=== PATIENT | male | born 1935 ===

== ENCOUNTER 2018-03-29 01:16 | Emergency (ER) | payer MEDICARE ==
[2018-03-29 01:16] VITALS: BMI 28.8
[2018-03-29 01:33] VITALS: O2SAT 95
--- NOTE | 2018-03-29 01:35 | C.PDOC ---
History Of Present Illness Patient presents to the ER with acute urinary retention, last voided at around 1700. Patient has an appointment for surgical procedure for enlarged prostate. Denies fever, chills, nausea, or vomiting. Time Seen by Provider: 03/29/18 01:35 Chief Complaint (Nursing): Male Genitourinary History Per: Patient History/Exam Limitations: no limitations Onset/Duration Of Symptoms: Hrs Current Symptoms Are (Timing): Still Present Severity: Mild Pain Scale Rating Of: 3 Quality Of Discomfort: Unable To Describe Associated Symptoms: Urinary Symptoms (retention). denies: Fever, Chills, Nausea, Vomiting Alleviating Factors: None Recent travel outside of the [place]: No Past Medical History Reviewed: Historical Data, Nursing Documentation, Vital Signs Vital Signs: Last Vital Signs Temp 97.9 F 03/29/18 01:27 Pulse 69 03/29/18 01:27 Resp 14 03/29/18 01:27 BP 135/81 03/29/18 01:27 Pulse Ox 95 03/29/18 01:27 - Medical History PMH: Denies: Chronic Kidney Disease - [facility] Procedures CIRCUMCISION (08/26/13) DIPHTHERIA TOXOID ADMIN (09/21/13) TETANUS TOXOID ADMINIST (09/21/13) Family History: States: No Known Family Hx - Social History Hx Alcohol Use: No Hx Substance Use: No - Immunization History Hx Tetanus Toxoid Vaccination: Yes Hx Influenza Vaccination: Yes Hx Pneumococcal Vaccination: Yes Review Of Systems Constitutional: Negative for: Fever, Chills Gastrointestinal: Negative for: Nausea, Vomiting Genitourinary: Positive for: Other (Urinary retention) Physical Exam - Physical Exam Appears: Non-toxic Skin: Warm, Dry Head: Normacephalic Oral Mucosa: Moist Chest: Symmetrical, No Tenderness Cardiovascular: Rhythm Regular Respiratory: No Rales, No Rhonchi, No Wheezing Gastrointestinal/Abdominal: Soft, No Tenderness Neurological/Psych: Oriented x3 ED Course And Treatment O2 Sat by Pulse Oximetry: 95 (Room air) Pulse Ox Interpretation: Normal Progress Note: Placed 14 pashto watson without difficulty, 600cc clear urine drained with instant relief. 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 Disposition Counseled Patient/Family Regarding: Studies Performed, Diagnosis, Need For Followup - Disposition Disposition: HOME/ ROUTINE Disposition Time: 01:35 Condition: FAIR Additional Instructions: Please follow up with your urologist Instructions: How to Care for Your Watson Catheter, Male, Urinary Retention (DC) Forms: [facility] (Turkmen) Print Language: ICELANDIC - Clinical Impression Clinical Impression: Acute urinary retention - Scribe Statement The provider has reviewed the documentation as recorded by the Scribe Jaylon Poe All medical record entries made by the Scribe were at my direction and personally dictated by me. I have reviewed the chart and agree that the record accurately reflects my personal performance of the history, physical exam, medical decision making, and the department course for this patient. I have also personally directed, reviewed, and agree with the discharge instructions and disposition.
[2018-03-29 02:57] VITALS: BP 131/78; PULSE 81; RESP 18; TEMP 98.3
== END 2018-03-29 02:45 | disposition home or self-care (01) ==
LOC: C.ER 01:16
DX: R33.8 Other retention of urine (principal)

== ENCOUNTER 2018-04-06 10:02 | Inpatient (IN) | payer MEDICARE ==
[2018-04-06 10:03] VITALS: BMI 28.8
--- NOTE | 2018-04-06 10:52 | C.PDOC ---
History Of Present Illness 82 year old male presents to the ED complaining of testicular and penile pain. Reports he had laser surgery for his prostate on 02/03/18 and since then he has been having the pain. Patient was seen in the ED on 03/29/18 for urinary r etention, urinary catheter was placed and patient was instructed to follow up with Urologist. Patient followed up with Dr. Arauz on 04/03/18 and was given prescriptions but reports he was unable to pick it up. Time Seen by Provider: 04/06/18 10:30 Chief Complaint (Nursing): Male Genitourinary History Per: Patient, Family History/Exam Limitations: no limitations Onset/Duration Of Symptoms: Days Current Symptoms Are (Timing): Still Present Quality Of Discomfort: "Pain" Associated Symptoms: denies: Fever, Chills, Nausea, Vomiting, Diarrhea, Back Pain, Chest Pain Past Medical History Reviewed: Historical Data, Nursing Documentation, Vital Signs Vital Signs: Last Vital Signs Temp 97.6 F 04/06/18 10:20 Pulse 112 H 04/06/18 10:20 Resp 20 04/06/18 10:20 BP 147/85 04/06/18 10:20 Pulse Ox 98 04/06/18 10:20 - Medical History PMH: Denies: Chronic Kidney Disease Other PMH: Prostate problems Other Surgeries: hx of surgeries - [facility] Procedures CIRCUMCISION (08/26/13) DIPHTHERIA TOXOID ADMIN (09/21/13) TETANUS TOXOID ADMINIST (09/21/13) Family History: States: No Known Family Hx - Social History Hx Alcohol Use: No Hx Substance Use: No - Immunization History Hx Tetanus Toxoid Vaccination: Yes Hx Influenza Vaccination: Yes Hx Pneumococcal Vaccination: Yes Review Of Systems Except As Marked, All Systems Reviewed And Found Negative. Constitutional: Negative for: Fever, Chills Gastrointestinal: Negative for: Nausea, Vomiting, Abdominal Pain, Diarrhea Genitourinary: Positive for: Scrotal Pain, Penile Pain Physical Exam - Physical Exam Appears: Non-toxic, No Acute Distress Skin: Warm, Dry, No Rash Head: Atraumatic, Normacephalic Eye(s): bilateral: Normal Inspection Ear(s): Bilateral: Normal Nose: Normal Oral Mucosa: Moist Tongue: Normal Appearing Neck: Supple Lymphatic: Normal Exam Chest: Symmetrical Cardiovascular: Rhythm Regular Respiratory: No Rales, No Rhonchi, No Wheezing Gastrointestinal/Abdominal: Soft, Tenderness (suprapubic), No Distention, No Guarding Back: Normal Inspection Male Genital: Testicular Tenderness, No Testicular Swelling, Circumcised, Other (watson in place) Extremity: Normal ROM, No Tenderness, No Pedal Edema Neurological/Psych: Oriented x3, Normal Speech, Normal Motor, Normal Sensation ED Course And Treatment - Laboratory Results Result Diagrams: 04/06/18 11:00 04/06/18 11:00 Lab Interpretation: Abnormal (leucocytosis) ECG: Interpreted By Ri ECG Rhythm: Sinus Rhythm, R BBB ECG Interpretation: Abnormal (L axis deviation, incomplete RBBB) O2 Sat by Pulse Oximetry: 98 (RA) Pulse Ox Interpretation: Normal - CT Scan/US US testicular Other Rad Studies (CT/US): Read By Radiologist, Radiology Report Reviewed CT/US Interpretation: Accession No. : [id number]. Patient Name / ID : CLAUDIA Garcia / [id number]. Exam Date : 04/06/2018 11:42:57 ( Approved ). Study Comment : Sex / Age : M / 82Y. Creator : Jose Manuel Beckett MD. Dictator : Jose Manuel Beckett MD. Electrophysiologist : Alemite Operator : Jose Manuel Beckett MD. Approver2 : Report Date : 04/06/2018 13:22:37. My Comment : . Testicular ultrasound. HISTORY: Testicular pain. COMPARISON: None available. Technique: Real-time sonography was performed through the scrotum. Findings: Right testes: 3.7 x 2.3 x 2.6 centimeters. Homogeneous echotexture. Normal flow. Small right scrotal hydrocele. Punctate scattered testicular calcifications. Right epididymis: 0.7 x 1.1 x 1.2 centimeters. Normal flow. Left testes: 4.4 x 1.9 x 2.6 centimeters. Normal flow. Homogeneous echotexture. Punctate scattered testicular calcifications. Small left scrotal hydrocele. Prominent left epid idymis measuring 1.6 x 1.4 x 1.9 centimeters with associated increased flow. Complex septated left epididymal cyst measuring 7 x 7 x 8 millimeters. Impression: Prominent left epididymis measuring up to 1.9 centimeters with associated increased flow which may represent underlying epididymitis. Clinical correlation. Additional complex septated left epididymal cyst measuring up to 8 millimeters. Small bilateral scrotal hydroceles. 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 Clinical correlation. CT abd/pel Other Rad Studies (CT/US): Read By Radiologist, Radiology Report Reviewed CT/US Interpretation: Accession No. : [id number]. Patient Name / ID : CLAUDIA Garcia / [id number]. Exam Date : 04/06/2018 15:12:50 ( Addendum_Approved ). Study Comment : Sex / Age : M / 82Y. Creator : Segundo Mccollum MD. Dictator : Segundo Mccollum MD. Electrophysiologist : Alemite Operator : Segundo Mccollum MD. Approver2 : Report Date : 04/06/2018 16:06:55. My Comment : . ADDENDUM: Watson catheter needs to be pulled out completely. No evidence of prostate abscess. [ Addendum Report Added by Segundo Mccollum MD at 04/06/2018 16:10:31 ]. Date of service: 04/06/2018. PROCEDURE: CT Abdomen and Pelvis with contrast. HISTORY: R/O PROSTATE ABSESS. COMPARISON: None. TECHNIQUE: Contrast dose: Radiation dose: Total exam DLP = 733.05 mGy-cm. This CT exam was performed using one or more of the following dose reduction techniques: Automated exposure control, adjustment of the mA and/or kV according to patient size, and/or use of iterative reconstruction technique. FINDINGS: LOWER THORAX: Unremarkable. LIVER: Unremarkable. No gross lesion or ductal dilatation. GALLBLADDER AND BILE DUCTS: Unremarkable. PANCREAS: Unremarkable. No gross lesion or ductal dilatation. SPLEEN: Unremarkable. ADRENALS: Unremarkable. No mass. KIDNEYS AND URETERS: 22 millimeter lower pole cyst. 2 millimeter probable in the left lower pole. VASCULATURE: Unremarkable. No aortic aneurysm. No aortic atherosclerotic calcification or mural plaque present. BOWEL: Unremarkable. No obstruction. No gross mural thickening. APPENDIX: Normal appendix. PERITONEUM: Unremarkable. No free fluid. No free air. LYMPH NODES: Unremarkable. No enlarged lymph nodes. BLADDER: Unremarkable. REPRODUCTIVE: Enlarged prostate gland. Watson catheter tip in the prostatic urethra. Balloon distended in the corpora spongiosum. Recommend pull back. BONES: No suspicious lesions. OTHER FINDINGS: None. IMPRESSION: Enlarged prostate gland. Watson catheter tip in the prostatic ure thra. Balloon distended in the corpora spongiosum. Recommend pull back. Medical Decision Making Medical Decision Making: Plan - Bloodwork - Morphine 1mg IVP - US testicular at 12 pmd Case discussed with Dr. Avila, pt's Urologist, he recommended abd/pelvis CT scan r/o prostate abscess, rocephine 1 g q 24 hrs, pyridium and nsaids. Pt to be placed in observation to hospitalist and Dr. Avila will see pt tomorrow AM. Case discussed with Dr. Mcfadden who accepted the pt. Disposition Counseled Patient/Family Regarding: Studies Performed, Diagnosis - Disposition Disposition: HOME/ ROUTINE Disposition Time: 14:18 Condition: STABLE - Clinical Impression Clinical Impression: BPH (benign prostatic hyperplasia), Epididymitis, Abdominal pain - PA / BOW MACHINE OPERATOR / Resident Statement MD/DO has reviewed & agrees with the documentation as recorded. - Scribe Statement The provider has reviewed the documentation as recorded by the Scribe Shakira Ardon All medical record entries made by the Cleveibradha were at my direction and personally dictated by me. I have reviewed the chart and agree that the record accurately reflects my personal performance of the history, physical exam, medical decision making, and the department course for this patient. I have also personally directed, reviewed, and agree with the discharge instructions and di sposition.
[2018-04-06 11:05] LABS: BASO % 0.3 % (0.0-2.0); EOS # 0.1 K/uL (0.0-0.7); EOS % 0.8 % (0.0-4.0); HEMOGLOBIN 14.8 g/dL (12.0-18.0); LYMPH # 0.9 K/uL (1.0-4.3); LYMPH % 6.5 % (20.0-40.0); MEAN CELL VOLUME 85.9 fL (80.0-94.0); MEAN CORPUSCULAR HEMOGLOBIN 29.8 pg (27.0-31.0); MEAN CORPUSCULAR HGB CONC 34.7 g/dL (33.0-37.0); MEAN PLATELET VOLUME 7.2 fL (7.2-11.7); MONO # 0.9 K/uL (0.0-0.8); MONO % 6.8 % (0.0-10.0); NEUT # 11.8 K/uL (1.8-7.0); NEUT % 85.6 % (50.0-75.0); PLATELET COUNT 208 K/uL (130-400); RBC 4.99 Mil/uL (4.40-5.90); RED CELL DISTRIBUTION WIDTH 13.5 % (11.5-14.5); WHITE BLOOD COUNT 13.8 K/uL (4.8-10.8)
[2018-04-06 11:18] LABS: ALB/GLOB RATIO 1.1 (1.0-2.1); ALBUMIN 3.9 g/dL (3.5-5.0); ALT/SGPT 21 U/L (21-72); AST/SGOT 22 U/L (17-59); BLOOD UREA NITROGEN 22 mg/dL (9-20); CALCIUM 9.3 mg/dl (8.6-10.4); GFR NON-AFRICAN AMERICAN > 60
[2018-04-06 11:24] LABS: SQUAMOUS EPITHIAL 1 /hpf (0-5); URINE BACTERIA RARE (<OCC); URINE BILIRUBIN NEGATIVE (NEGATIVE); URINE CLARITY Hazy (Clear); URINE COLOR Amber (YELLOW); URINE GLUCOSE (UA) NORMAL (Normal); URINE LEUKOCYTE ESTERASE 3+ Leu/uL (Negative); URINE PROTEIN 3+ mg/dL (NEGATIVE); URINE UROBILINOGEN NORMAL mg/dL (0.2-1.0)
[2018-04-06 11:36] LABS: URINE BLOOD 3+ (NEGATIVE)
[2018-04-06] MEDS ORDERED: Sodium Chloride 0.9% 1,000 ML IV ONE (12:01)
[2018-04-06] MEDS ORDERED: Iohexol 240 (50 ml) PO ONE (12:01)
[2018-04-06] MEDS ORDERED: Naproxen 275 mg Tab PO STA (12:06)
[2018-04-06] MEDS ORDERED: cefTRIAXone IV 1 gm in Dextros 50 ML IV ONE (12:08)
[2018-04-06 12:19] LABS: BANDS 2 % (0-2); EOSINOPHIL 2 % (0-4); LYMPHOCYTE 7 % (20-40); MONOCYTE 6 % (0-10); NEUTROPHIL 82 % (50-75); REACTIVE LYMPHOCYTES 1 % (0-0); TOTAL CELLS COUNTED 100
[2018-04-06 12:20] LABS: PLATELET ESTIMATE NORMAL (NORMAL)
[2018-04-06] MEDS ORDERED: Sodium Chloride 0.9% 1,000 ML ONE (12:31)
[2018-04-06] MEDS ORDERED: Naproxen 275 mg Tab PO ONE (12:31)
[2018-04-06] MEDS ORDERED: cefTRIAXone 1 gm 1 GM/100 ML BAG IVPB ONE (12:31)
[2018-04-06] MEDS ORDERED: Iohexol 240 (50 ml) ONE (12:46)
--- NOTE | 2018-04-06 13:26 | US ---
Testicular ultrasound HISTORY: Testicular pain. COMPARISON: None available. Technique: Real-time sonography was performed through the scrotum. Findings: Right testes: 3.7 x 2.3 x 2.6 centimeters. Homogeneous echotexture. Normal flow. Small right scrotal hydrocele. Punctate scattered testicular calcifications. Right epididymis: 0.7 x 1.1 x 1.2 centimeters. Normal flow. Left testes: 4.4 x 1.9 x 2.6 centimeters. Normal flow. Homogeneous echotexture. Punctate scattered testicular calcifications. Small left scrotal hydrocele. Prominent left epididymis measuring 1.6 x 1.4 x 1.9 centimeters with associated increased flow. Complex septated left epididymal cyst measuring 7 x 7 x 8 millimeters. Impression: Prominent left epididymis measuring up to 1.9 centimeters with associated increased flow which may represent underlying epididymitis. Clinical correlation. Additional complex septated left epididymal cyst measuring up to 8 millimeters. Small bilateral scrotal hydroceles. 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 Clinical correlation.
--- NOTE | 2018-04-06 14:23 | CP.PCM.HP ---
<JoshNiru EricksonMarlon - Last Filed: 04/06/18 17:28> History of Present Illness - History of Present Illness History of Present Illness: HPI: 82 year old male with past medical history of severe BPH presents to the ER for dysuria and hematuria. Patient states he has been having dysuria since Saturday. At that time he was seen by his urologist Dr. Avila in the office and patient states his watson was changed and he was told to start a medication but he did not get a chance to fill the prescription. Patient states the pain became unbearable overnight and he was not able to sleep. The pain is what prompted him to come to the ER. Patient denies chest pain, shortness of breath, palpitations, nausea, vomiting, fever, chills, diarrhea, constipation, increase or decrease in weight. PMD: Dr. Rockwell Urologist: Dr. Avila Past Medical History: BPH Surgical History: s/p GreenLight Laser of the prostate 02/03/18 Medications: denies Allergies: denies Social History: Quit smoking 35 years ago (previously smoked 12 years 1ppd); quit drinking alcohol 35 years ago; retired - Tailor; lives with Present on Admission - Present on Admission Any Indicators Present on Admission: No Review of Systems - Constitutional Constitutional: absent: Chills, Fever, Weight Gain, Weight Loss - Cardiovascular Cardiovascular: absent: Chest Pain, Dyspnea, Leg Edema, Palpitations - Respiratory Respiratory: absent: Cough, Dyspnea - Gastrointestinal Gastrointestinal: absent: Abdominal Pain, Constipation, Diarrhea, Nausea, Vomiting - Genitourinary Genitourinary: Dysuria, Hematuria - Musculoskeletal Musculoskeletal: absent: Numbness, Tingling - Neurological Neurological: absent: Weakness Past Patient History - Infectious Disease Hx of Infectious Diseases: None - Past Medical History & Family History Past Medical History?: No - Past Social History Smoking Status: Former Smoker - CARDIAC Hx Cardiac Disorders: No - PULMONARY Hx Respiratory Disorders: No - NEUROLOGICAL Hx Neurological Disorder: No - HEENT Hx HEENT Problems: Yes Hx Cataracts: Yes - RENAL Hx Chronic Kidney Disease: No - ENDOCRINE/METABOLIC Hx Endocrine Disorders: No - HEMATOLOGICAL/ONCOLOGICAL Hx Blood Disorders: No - INTEGUMENTARY Hx Dermatological Problems: No - MUSCULOSKELETAL/RHEUMATOLOGICAL Hx Musculoskeletal Disorders: No - GASTROINTESTINAL Hx Gastrointestinal Disorders: No - GENITOURINARY/GYNECOLOGICAL Hx Genitourinary Disorders: Yes Hx Prostate Problems: Yes - PSYCHIATRIC Hx Substance Use: No - SURGICAL HISTORY Hx Surgeries: Yes Hx Cataract Extraction: Yes (bilateral) Hx Eye Surgery: Yes - ANESTHESIA Hx Anesthesia: Yes Hx Anesthesia Reactions: No Hx Malignant Hyperthermia: No Meds Allergies/Adverse Reactions: Allergies Allergy/AdvReac Type Severity Reaction Status Date / Time No Known Allergies Allergy Verified 04/06/18 10:08 Physical Exam - Constitutional Appears: Well, No Acute Distress - Head Exam Head Exam: ATRAUMATIC, NORMAL INSPECTION - Eye Exam Eye Exam: EOMI, Normal appearance - ENT Exam ENT Exam: Mucous Membranes Moist - Respiratory Exam Respiratory Exam: Clear to Auscultation Bilateral, NORMAL BREATHING PATTERN - Cardiovascular Exam Cardiovascular Exam: REGULAR RHYTHM, +S1, +S2 - GI/Abdominal Exam GI & Abdominal Exam: Soft, Tenderness. absent: Normal Bowel Sounds - Exam Additional comments: watson in place - Extremities Exam Extremities exam: Positive for: normal inspection - Neurological Exam Neurological exam: Alert, Oriented x3 - Psychiatric Exam Psychiatric exam: Normal Affect, Normal Mood - Skin Skin Exam: Normal Color Results - Vital Signs Recent Vital Signs: Last Vital Signs Temp 97.6 F 04/06/18 10:20 Pulse 86 04/06/18 13:19 Resp 18 04/06/18 13:19 BP 130/70 04/06/18 13:19 Pulse Ox 98 04/06/18 14:20 - Labs Result Diagrams: 04/06/18 11:00 04/06/18 11:00 Labs: Laboratory Results - last 24 hr 04/06/18 04/06/18 04/06/18 11:00 11:00 11:00 WBC 13.8 H RBC 4.99 Hgb 14.8 Hct 42.8 MCV 85.9 MCH 29.8 MCHC 34.7 RDW 13.5 Plt Count 208 MPV 7.2 Neut % (Auto) 85.6 H Lymph % (Auto) 6.5 L Curry % (Auto) 6.8 Eos % (Auto) 0.8 Baso % (Auto) 0.3 Neut # (Auto) 11.8 H Lymph # (Auto) 0.9 L Curry # (Auto) 0.9 H Eos # (Auto) 0.1 Baso # (Auto) 0.0 Neutrophils % (Manual) 82 H Band Neutrophils % 2 Lymphocytes % (Manual) 7 L Reactive Lymphs % 1 H Monocytes % (Manual) 6 Eosinophils % (Manual) 2 Platelet Estimate Normal RBC Morphology Normal Sodium 134 Potassium 4.2 Chloride 98 Carbon Dioxide 25 Anion Gap 15 BUN 22 H Creatinine 0.8 Est GFR ( Amer) > 60 Est GFR (Non-Af Amer) > 60 Random Glucose 118 H Calcium 9.3 Total Bilirubin 1.3 AST 22 ALT 21 Alkaline Phosphatase 85 Total Protein 7.5 Albumin 3.9 Globulin 3.6 Albumin/Globulin Ratio 1.1 Urine Color Uzma Urine Clarity Hazy Urine pH 7.0 Ur Specific [place] 1.020 Urine Protein 3+ H Urine Glucose (UA) Normal Urine Ketones Trace Urine Blood 3+ H Urine Nitrate Negative Urine Bilirubin Negative Urine Urobilinogen Normal Ur Leukocyte Esterase 3+ H Urine WBC (Auto) 494 H Urine RBC (Auto) 526 H Ur Squamous Epith Cells 1 Urine Bacteria Rare Assessment & Plan - Assessment and Plan (Free Text) Assessment: Severe BPH/Hematuria - Urology Consult: Dr. Avila --> help appreciated - NPO after midnight - s/p GreenLight Laser of the prostate 02/03/18 - UA: + blood and WBC - H/H stable - f/u urine culture; blood culture - Medications: * Ceftriacone 1gm q12h * Morphine 1mg IV q4prn * Tylenol q6 prn (fever) - Images: * Testicular Ultrasound: Prominent left epididymis measuring up to 1.9 centimeters with associated increased flow which may represent underlying epididymitis. Clinical correlation. Additional complex septated left epididymal cyst measuring up to 8 millimeters. Small bilateral scrotal hydroceles. 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 * f/u Abdomen/pelvic CT Prophylaxis - VTE contraindication - due to hematuria - SCDS - Florastor 250mg bid - Colace daily Case discussed with Dr. Lesa Moreno PGY-2 <Perry Mcfadden - Last Filed: 04/06/18 18:22> Results - Vital Signs Recent Vital Signs: Last Vital Signs Temp 97.9 F 04/06/18 16:30 Pulse 89 04/06/18 16:30 Resp 20 04/06/18 16:30 BP 125/75 04/06/18 16:30 Pulse Ox 96 04/06/18 16:30 - Labs Result Diagrams: 04/06/18 11:00 04/06/18 11:00 Labs: Laboratory Results - last 24 hr 04/06/18 04/06/18 04/06/18 11:00 11:00 11:00 WBC 13.8 H RBC 4.99 Hgb 14.8 Hct 42.8 MCV 85.9 MCH 29.8 MCHC 34.7 RDW 13.5 Plt Count 208 MPV 7.2 Neut % (Auto) 85.6 H Lymph % (Auto) 6.5 L Curry % (Auto) 6.8 Eos % (Auto) 0.8 Baso % (Auto) 0.3 Neut # (Auto) 11.8 H Lymph # (Auto) 0.9 L Curry # (Auto) 0.9 H Eos # (Auto) 0.1 Baso # (Auto) 0.0 Neutrophils % (Manual) 82 H Band Neutrophils % 2 Lymphocytes % (Manual) 7 L Reactive Lymphs % 1 H Monocytes % (Manual) 6 Eosinophils % (Manual) 2 Platelet Estimate Normal RBC Morphology Normal Sodium 134 Potassium 4.2 Chloride 98 Carbon Dioxide 25 Anion Gap 15 BUN 22 H Creatinine 0.8 Est GFR ( Amer) > 60 Est GFR (Non-Af Amer) > 60 Random Glucose 118 H Calcium 9.3 Total Bilirubin 1.3 AST 22 ALT 21 Alkaline Phosphatase 85 Total Protein 7.5 Albumin 3.9 Globulin 3.6 Albumin/Globulin Ratio 1.1 Urine Color Uzma Urine Clarity Hazy Urine pH 7.0 Ur Specific [place] 1.020 Urine Protein 3+ H Urine Glucose (UA) Normal Urine Ketones Trace Urine Blood 3+ H Urine Nitrate Negative Urine Bilirubin Negative Urine Urobilinogen Normal Ur Leukocyte Esterase 3+ H Urine WBC (Auto) 494 H Urine RBC (Auto) 526 H Ur Squamous Epith Cells 1 Urine Bacteria Rare Attending/Attestation - Attestation I have personally seen and examined this patient.: Yes I have fully participated in the care of the patient.: Yes I have reviewed all pertinent clinical information: Yes Notes (Text): Medical attending: Patient was seen and examined by me with the medical records technician on 6T. The patient was not in any acute distress when we came and saw the patient. I was informed that he did have a watson cathter previously however on 6T it had already been removed. He reported there was penile pain as well as burning with urination. He denied scrotal area pain, also denied fevers and chills. On exam the tenderness was penile, he did not have scrotal pain - however the pain had already recived morphine and pyridum The patient reports no other previous medical history besides the recent urological procedures for the BPH The UA shows a lot of RBC and WBC. He is on Rocpehin IV BID, if there are signifigant findings on CT scan then may need ID evaluation Pending the CT scan of the abdomen and pelvis Slow IVF for the time being. Patient will be NPO after midnight in case of procedure tommokevin thank you Perry Mcfadden
[2018-04-06] MEDS ORDERED: Iodixanol 320 MG/ML 100 ML BOTTLE IV ONE (14:25)
--- NOTE | 2018-04-06 16:10 | CT ---
Date of service: 04/06/2018 PROCEDURE: CT Abdomen and Pelvis with contrast HISTORY: R/O PROSTATE ABSESS COMPARISON: None. TECHNIQUE: Contrast dose: Radiation dose: Total exam DLP = 733.05 mGy-cm. This CT exam was performed using one or more of the following dose reduction techniques: Automated exposure control, adjustment of the mA and/or kV according to patient size, and/or use of iterative reconstruction technique. FINDINGS: LOWER THORAX: Unremarkable. LIVER: Unremarkable. No gross lesion or ductal dilatation. GALLBLADDER AND BILE DUCTS: Unremarkable. PANCREAS: Unremarkable. No gross lesion or ductal dilatation. SPLEEN: Unremarkable. ADRENALS: Unremarkable. No mass. KIDNEYS AND URETERS: 22 millimeter lower pole cyst. 2 millimeter probable in the left lower pole. VASCULATURE: Unremarkable. No aortic aneurysm. No aortic atherosclerotic calcification or mural plaque present. BOWEL: Unremarkable. No obstruction. No gross mural thickening. APPENDIX: Normal appendix. PERITONEUM: Unremarkable. No free fluid. No free air. LYMPH NODES: Unremarkable. No enlarged lymph nodes. BLADDER: Unremarkable. REPRODUCTIVE: Enlarged prostate gland. Monet catheter tip in the prostatic urethra. Balloon distended in the corpora spongiosum. Recommend pull back. BONES: No suspicious lesions. OTHER FINDINGS: None. IMPRESSION: Enlarged prostate gland. Monet catheter tip in the prostatic urethra. Balloon distended in the corpora spongiosum. Recommend pull back.
[2018-04-06] MEDS: Saccharomyces Boulardi 250 mg Cap PO SCH (19:15)
[2018-04-07 06:36] LABS: BASO # 0.1 K/uL (0.0-0.2); BASO % 0.4 % (0.0-2.0); EOS # 0.3 K/uL (0.0-0.7); EOS % 2.4 % (0.0-4.0); HEMOGLOBIN 12.6 g/dL (12.0-18.0); LYMPH % 7.2 % (20.0-40.0); MEAN CORPUSCULAR HEMOGLOBIN 29.7 pg (27.0-31.0); MEAN CORPUSCULAR HGB CONC 34.5 g/dL (33.0-37.0); MEAN PLATELET VOLUME 7.1 fL (7.2-11.7); MONO # 1.1 K/uL (0.0-0.8); NEUT # 11.5 K/uL (1.8-7.0); PLATELET COUNT 186 K/uL (130-400); RBC 4.26 Mil/uL (4.40-5.90); RED CELL DISTRIBUTION WIDTH 13.8 % (11.5-14.5)
[2018-04-07 06:45] LABS: ALT/SGPT 16 U/L (21-72); AST/SGOT 16 U/L (17-59); BLOOD UREA NITROGEN 20 mg/dL (9-20); CALCIUM 7.4 mg/dl (8.6-10.4); GFR NON-AFRICAN AMERICAN > 60
[2018-04-07 07:55] VITALS: RESP 20
[2018-04-07 08:37] LABS: INR 1.2; PROTHROMBIN TIME 13.3 SECONDS (9.7-12.2)
[2018-04-07 08:59] LABS: EOSINOPHIL 1 % (0-4); LYMPHOCYTE 9 % (20-40); MONOCYTE 4 % (0-10); NEUTROPHIL 86 % (50-75); TOTAL CELLS COUNTED 100
[2018-04-07 09:03] LABS: PLATELET ESTIMATE NORMAL (NORMAL)
--- NOTE | 2018-04-07 09:14 | CP.PCM.PN ---
Subjective - Date & Time of Evaluation Date of Evaluation: 04/07/18 Time of Evaluation: 09:10 - Subjective Subjective: PGY-1 Medicine Progress Note for Dr. Gonzalez's service Patient seen and examined at bedside. Patient reports burning pain with urination, dysuria, and hematuria. Patient denies fevers, chills, chest pain, so b, abdominal pain, n/v, constipation or diarrhea. Objective - Vital Signs/Intake and Output Vital Signs (last 24 hours): Temp Pulse Resp BP Pulse Ox 99.9 F H 77 20 97/45 L 96 04/07/18 07:00 04/07/18 07:00 04/07/18 07:00 04/07/18 07:00 04/07/18 07:00 Intake and Output: 04/07/18 04/07/18 06:59 18:59 Intake Total 560 Balance 560 - Medications Medications: Current Medications Acetaminophen (Tylenol 325mg Tab) 650 mg PO Q6 PRN PRN Reason: Fever >100.4 F Docusate Sodium (Colace) 100 mg PO DAILY [facility] Ceftriaxone Sodium 1 gm/ (Sodium Chloride) 100 mls @ 100 mls/hr IVPB Q12H [facility]; Protocol Last Admin: 04/07/18 04:45 Dose: 100 mls/hr Dextrose (Dextrose 5% In Water 1000 Ml) 1,000 mls @ 70 mls/hr IV .[id number] [facility] Last Admin: 04/06/18 19:13 Dose: 70 mls/hr Morphine Sulfate (Morphine) 1 mg IV Q4 PRN PRN Reason: Pain, severe (8-10) Phenazopyridine HCl (Pyridium) 200 mg PO TIDPC [facility] Stop: 04/08/18 00:00 Last Admin: 04/06/18 22:18 Dose: 200 mg Saccharomyces Boulardii (Florastor) 250 mg PO BID [facility] Last Admin: 04/06/18 19:15 Dose: 250 mg - Labs Labs: 04/07/18 06:27 04/07/18 06:27 PT 13.3 SECONDS (9.7-12.2) H 04/07/18 06:27 INR 1.2 04/07/18 06:27 APTT 32 SECONDS (21-34) 04/07/18 06:27 - Constitutional Appears: Non-toxic, No Acute Distress - Head Exam Head Exam: NORMAL INSPECTION, NORMOCEPHALIC - Eye Exam Eye Exam: EOMI, Normal appearance. absent: Nystagmus, Scleral icterus - Respiratory Exam Respiratory Exam: Clear to Ausculation Bilateral, NORMAL BREATHING PATTERN. absent: Rales, Rhonchi, Wheezes - Cardiovascular Exam Cardiovascular Exam: REGULAR RHYTHM, +S1, +S2 - GI/Abdominal Exam GI & Abdominal Exam: Soft, Normal Bowel Sounds. absent: Distended, Firm, Guarding, Rigid, Tenderness - Back Exam Back Exam: NORMAL INSPECTION. absent: CVA tenderness (L), CVA tenderness (R) - Neurological Exam Neurological Exam: Alert, Awake, Oriented x3 - Psychiatric Exam Psychiatric exam: Normal Affect, Normal Mood - Skin Skin Exam: Intact, Normal Color Assessment and Plan - Assessment and Plan (Free Text) Assessment: Patient is a 82 yo male PMH of BPH is admitted for dysuria and hematuria s/p greenlight laser of prostate on 02/03/18 Dr. Avila. Patient's watson was removed on admission in emergency department. Patient found to have UTI on urinalysis and started on ceftriaxone. Patient complains of burning urination with hematuria. Plan: Hematuria Urology Consulted: Dr. Avila- recommendations appreciated- phoned in to state no surgical intervention and restart diet 2/2 to BPH; Patient had greenlight laser surgery with Dr. Avila- on 02/03/18 04-06-18 Testicular U/S: May represent underlying epididymitis on left side. C linical correlation. Additional complex septated left epididymal cyst measuring up to 8 millimeters. Small bilateral scrotal hydroceles. 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 04-06-18 Ab/Pelvis CT: Recommended removing Watson instead of pulling back; No signs of abscess H&H stable UTI U/A: 3+ L.E, Negative Nitrates, WBC 496, RBC 526 Pyridium 200mg po tidpc bk Ceftriaxone 1gm IVPB (started 04-06-18) PPx GI: Florastor DVT: SCDs Vincenzo Gann PGY-1 Medical Management d/w Dr. Gonzalez
[2018-04-07] MEDS: Saccharomyces Boulardi 250 mg Cap PO SCH ×2 (09:40→17:17)
--- NOTE | 2018-04-07 09:50 | CARD ---
APPROVED REPORT Date of service: 04/06/2018 EKG Measurement Heart [id number] <Conclusion> Normal sinus rhythm Left axis deviation Incomplete right bundle branch block Abnormal ECG
[2018-04-08 06:51] LABS: BASO # 0.1 K/uL (0.0-0.2); BASO % 0.5 % (0.0-2.0); EOS # 0.4 K/uL (0.0-0.7); EOS % 3.7 % (0.0-4.0); HEMOGLOBIN 13.3 g/dL (12.0-18.0); LYMPH # 0.7 K/uL (1.0-4.3); LYMPH % 7.1 % (20.0-40.0); MEAN CELL VOLUME 85.4 fL (80.0-94.0); MEAN CORPUSCULAR HEMOGLOBIN 29.8 pg (27.0-31.0); MEAN CORPUSCULAR HGB CONC 34.9 g/dL (33.0-37.0); MEAN PLATELET VOLUME 6.8 fL (7.2-11.7); MONO # 0.8 K/uL (0.0-0.8); MONO % 7.8 % (0.0-10.0); NEUT # 8.3 K/uL (1.8-7.0); NEUT % 80.9 % (50.0-75.0); PLATELET COUNT 190 K/uL (130-400); RBC 4.47 Mil/uL (4.40-5.90); RED CELL DISTRIBUTION WIDTH 13.5 % (11.5-14.5); WHITE BLOOD COUNT 10.3 K/uL (4.8-10.8)
[2018-04-08 07:38] LABS: ALBUMIN 3.1 g/dL (3.5-5.0); ALT/SGPT 22 U/L (21-72); AST/SGOT 16 U/L (17-59); BLOOD UREA NITROGEN 15 mg/dL (9-20); CALCIUM 8.4 mg/dl (8.6-10.4); GFR NON-AFRICAN AMERICAN > 60
[2018-04-08 08:32] LABS: EOSINOPHIL 2 % (0-4); LYMPHOCYTE 5 % (20-40); MONOCYTE 5 % (0-10); NEUTROPHIL 88 % (50-75); PLATELET ESTIMATE NORMAL (NORMAL); TOTAL CELLS COUNTED 100
[2018-04-08] MEDS: Saccharomyces Boulardi 250 mg Cap PO SCH ×2 (10:34→17:32)
--- NOTE | 2018-04-08 13:06 | CP.PCM.PN ---
Subjective - Date & Time of Evaluation Date of Evaluation: 04/08/18 Time of Evaluation: 13:05 - Subjective Subjective: PGY-1 Medicine Progress Note for Dr. Gonzalez's service Patient seen and examined at bedside. Patient reports burning pain with urination, dysuria, but denies hematuria today. Patient denies fevers, chills, c hest pain, sob, abdominal pain, n/v, constipation or diarrhea. Objective - Vital Signs/Intake and Output Vital Signs (last 24 hours): Temp Pulse Resp BP Pulse Ox 98.0 F 67 20 113/67 95 04/08/18 07:00 04/08/18 07:00 04/08/18 07:00 04/08/18 07:00 04/08/18 07:00 Intake and Output: 04/08/18 04/08/18 06:59 18:59 Intake Total 890 Output Total 1150 Balance -260 - Medications Medications: Current Medications Acetaminophen (Tylenol 325mg Tab) 650 mg PO Q6 PRN PRN Reason: Fever >100.4 F Docusate Sodium (Colace) 100 mg PO DAILY [facility] Last Admin: 04/08/18 10:34 Dose: 100 mg Ceftriaxone Sodium 1 gm/ (Sodium Chloride) 100 mls @ 100 mls/hr IVPB Q12H [facility]; Protocol Last Admin: 04/08/18 05:24 Dose: 100 mls/hr Dextrose (Dextrose 5% In Water 1000 Ml) 1,000 mls @ 70 mls/hr IV .[id number] [facility] Last Admin: 04/08/18 10:28 Dose: 70 mls/hr Morphine Sulfate (Morphine) 1 mg IV Q4 PRN PRN Reason: Pain, severe (8-10) Saccharomyces Boulardii (Florastor) 250 mg PO BID [facility] Last Admin: 04/08/18 10:34 Dose: 250 mg - Labs Labs: 04/08/18 06:44 04/08/18 06:44 PT 13.3 SECONDS (9.7-12.2) H 04/07/18 06:27 INR 1.2 04/07/18 06:27 APTT 32 SECONDS (21-34) 04/07/18 06:27 - Additional Findings Additional findings: - Constitutional Appears: Non-toxic, No Acute Distress - Head Exam Head Exam: NORMAL INSPECTION, NORMOCEPHALIC - Eye Exam Eye Exam: EOMI, Normal appearance. absent: Nystagmus, Scleral icterus - Respiratory Exam Respiratory Exam: Clear to Ausculation Bilateral, NORMAL BREATHING PATTERN. absent: Rales, Rhonchi, Wheezes - Cardiovascular Exam Cardiovascular Exam: REGULAR RHYTHM, +S1, +S2 - GI/Abdominal Exam GI & Abdominal Exam: Soft, Normal Bowel Sounds. absent: Distended, Firm, Guarding, Rigid, Tenderness - Back Exam Back Exam: NORMAL INSPECTION. absent: CVA tenderness (L), CVA tenderness (R) - Neurological Exam Neurological Exam: Alert, Awake, Oriented x3 - Psychiatric Exam Psychiatric exam: Normal Affect, Normal Mood - Skin Skin Exam: Intact, Normal Color Assessment and Plan - Assessment and Plan (Free Text) Assessment: Patient is a 82 yo male PMH of BPH is admitted for dysuria and hematuria s/p greenlight laser of prostate on 02/03/18 Dr. Avila. Patient's watson was removed on admission in emergency department. Patient found to have UTI on urinalysis and started on ceftriaxone. Patient complains of burning urination with hematuria. Hematuria has resolved. Plan: Hematuria Urology Consulted: Dr. Avila- recommendations appreciated- phoned in to state no surgical intervention and restart diet 2/2 to BPH; Patient had greenlight laser surgery with Dr. Avila- on 02/03/18 04-06-18 Testicular U/S: May represent underlying epididymitis on left side. Clinical correlation. Additional complex septated left epididymal cyst measuring up to 8 millimeters. Small bilateral scrotal hydroceles. 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 04-06-18 Ab/Pelvis CT: Recommended removing Watson instead of pulling back; No signs of abscess H&H stable; Hematuria has resolved; Likely due to improper watson insertion UTI U/A: 3+ L.E, Negative Nitrates, WBC 496, RBC 526 Urine cx: Proteus and Enterococcus Faecalis ; both organisms sensitive to cipro Ciprofloxacin 400mg IVPB q12h (started 04-08-18) Morphine 1mg IV q4 PRN for pain Tylenol 650mg PO q6 PRN for pain PPx GI: Florastor 250mg PO bid DVT: SCDs Disposition: Discharge planning as per urology. Vincenzo Gann PGY-1 Medical Management d/w Dr. Gonzalez
[2018-04-08] MEDS: Ciprofloxacin 400mg/200ml D5W 400 MG/200 ML BAG IVPB SCH (15:54)
[2018-04-09] MEDS: Ciprofloxacin 400mg/200ml D5W 400 MG/200 ML BAG IVPB SCH ×2 (03:44→16:14)
[2018-04-09 06:35] LABS: BASO % 0.6 % (0.0-2.0); EOS # 0.5 K/uL (0.0-0.7); EOS % 7.7 % (0.0-4.0); HEMOGLOBIN 13.3 g/dL (12.0-18.0); LYMPH # 0.8 K/uL (1.0-4.3); LYMPH % 12.6 % (20.0-40.0); MEAN CELL VOLUME 85.1 fL (80.0-94.0); MEAN CORPUSCULAR HEMOGLOBIN 29.4 pg (27.0-31.0); MEAN CORPUSCULAR HGB CONC 34.5 g/dL (33.0-37.0); MEAN PLATELET VOLUME 6.9 fL (7.2-11.7); MONO # 0.6 K/uL (0.0-0.8); MONO % 10.5 % (0.0-10.0); NEUT # 4.2 K/uL (1.8-7.0); NEUT % 68.6 % (50.0-75.0); NRBC % 0.1 % (0.0-2.0); RBC 4.54 Mil/uL (4.40-5.90); RED CELL DISTRIBUTION WIDTH 13.3 % (11.5-14.5); WHITE BLOOD COUNT 6.2 K/uL (4.8-10.8)
[2018-04-09 06:52] LABS: ALB/GLOB RATIO 0.9 (1.0-2.1); ALBUMIN 3.1 g/dL (3.5-5.0); ALT/SGPT 20 U/L (21-72); AST/SGOT 17 U/L (17-59); BLOOD UREA NITROGEN 16 mg/dL (9-20); CALCIUM 7.8 mg/dl (8.6-10.4); GFR NON-AFRICAN AMERICAN > 60
[2018-04-09 07:36] VITALS: TEMP 97.8
--- NOTE | 2018-04-09 08:12 | CP.PCM.PN ---
Subjective - Date & Time of Evaluation Date of Evaluation: 04/09/18 Time of Evaluation: 08:09 - Subjective Subjective: urology pt seen yesterday watson free and voiding spontaneously. he has persistant complaints of dysuria now less than before. also complains when he sits on hard surfaces but cft shows no prostatic abscess only growth. currently he should remain on flomax two caps dailf, finasteride once daily and pyridium as needed.. Objective - Vital Signs/Intake and Output Vital Signs (last 24 hours): Temp Pulse Resp BP Pulse Ox 97.8 F 76 20 119/72 95 04/09/18 07:00 04/09/18 07:00 04/09/18 07:00 04/09/18 07:00 04/09/18 07:00 Intake and Output: 04/09/18 04/09/18 06:59 18:59 Intake Total 580 Output Total 500 Balance 80 - Medications Medications: Current Medications Acetaminophen (Tylenol 325mg Tab) 650 mg PO Q6 PRN PRN Reason: Fever >100.4 F Docusate Sodium (Colace) 100 mg PO DAILY [facility] Last Admin: 04/08/18 10:34 Dose: 100 mg Dextrose (Dextrose 5% In Water 1000 Ml) 1,000 mls @ 70 mls/hr IV .[id number] [facility] Last Admin: 04/09/18 03:46 Dose: 70 mls/hr Ciprofloxacin (Cipro 400mg/200ml Dsw) 400 mg in 200 mls @ 133 mls/hr IVPB Q12H [facility]; Protocol Last Admin: 04/09/18 03:44 Dose: 133 mls/hr Morphine Sulfate (Morphine) 1 mg IV Q4 PRN PRN Reason: Pain, severe (8-10) Saccharomyces Boulardii (Florastor) 250 mg PO BID [facility] Last Admin: 04/08/18 17:32 Dose: 250 mg - Labs Labs: 04/09/18 06:25 04/09/18 06:25 PT 13.3 SECONDS (9.7-12.2) H 04/07/18 06:27 INR 1.2 04/07/18 06:27 APTT 32 SECONDS (21-34) 04/07/18 06:27
--- NOTE | 2018-04-09 08:16 | CP.PCM.PN ---
Subjective - Date & Time of Evaluation Date of Evaluation: 04/09/18 Time of Evaluation: 08:15 - Subjective Subjective: uroogy cont tx for multi organism uti. cipro Objective - Vital Signs/Intake and Output Vital Signs (last 24 hours): Temp Pulse Resp BP Pulse Ox 97.8 F 76 20 119/72 95 04/09/18 07:00 04/09/18 07:00 04/09/18 07:00 04/09/18 07:00 04/09/18 07:00 Intake and Output: 04/09/18 04/09/18 06:59 18:59 Intake Total 580 Output Total 500 Balance 80 - Medications Medications: Current Medications Acetaminophen (Tylenol 325mg Tab) 650 mg PO Q6 PRN PRN Reason: Fever >100.4 F Docusate Sodium (Colace) 100 mg PO DAILY [facility] Last Admin: 04/08/18 10:34 Dose: 100 mg Dextrose (Dextrose 5% In Water 1000 Ml) 1,000 mls @ 70 mls/hr IV .[id number] [facility] Last Admin: 04/09/18 03:46 Dose: 70 mls/hr Ciprofloxacin (Cipro 400mg/200ml Dsw) 400 mg in 200 mls @ 133 mls/hr IVPB Q12H [facility]; Protocol Last Admin: 04/09/18 03:44 Dose: 133 mls/hr Morphine Sulfate (Morphine) 1 mg IV Q4 PRN PRN Reason: Pain, severe (8-10) Saccharomyces Boulardii (Florastor) 250 mg PO BID [facility] Last Admin: 04/08/18 17:32 Dose: 250 mg - Labs Labs: 04/09/18 06:25 04/09/18 06:25 PT 13.3 SECONDS (9.7-12.2) H 04/07/18 06:27 INR 1.2 04/07/18 06:27 APTT 32 SECONDS (21-34) 04/07/18 06:27
[2018-04-09] MEDS: Saccharomyces Boulardi 250 mg Cap PO SCH (09:04)
--- NOTE | 2018-04-09 15:50 | CP.PCM.DIS ---
Provider - Provider Date of Admission: 04/06/18 14:17 Attending physician: Kari Gonzalez MD Consults: 04/06/18 14:24 Urology Consult Stat Comment: Consulting Provider: Davonte Avila Consulting Physician: Davonte Avila Reason for Consult: BPH; s/p TURP ; urinary retention Time Spent in preparation of Discharge (in minutes): 45 Diagnosis - Discharge Diagnosis (1) UTI (urinary tract infection) Status: Acute Hospital Course - Lab Results Lab Results: Micro Results 04/06/18 12:40 Blood Blood Culture - Preliminary NO GROWTH AFTER 3 DAYS 04/06/18 12:39 Blood Blood Culture - Preliminary NO GROWTH AFTER 3 DAYS 04/06/18 12:55 Urine Urine Culture - Final Proteus Mirabilis Enterococcus Faecalis Most Recent Lab Values WBC 6.2 K/uL (4.8-10.8) 04/09/18 06:25 RBC 4.54 Mil/uL (4.40-5.90) 04/09/18 06:25 Hgb 13.3 g/dL (12.0-18.0) 04/09/18 06:25 Hct 38.7 % (35.0-51.0) 04/09/18 06:25 MCV 85.1 fL (80.0-94.0) 04/09/18 06:25 MCH 29.4 pg (27.0-31.0) 04/09/18 06:25 MCHC 34.5 g/dL (33.0-37.0) 04/09/18 06:25 RDW 13.3 % (11.5-14.5) 04/09/18 06:25 Plt Count 231 K/uL (130-400) 04/09/18 06:25 MPV 6.9 fL (7.2-11.7) L 04/09/18 06:25 Neut % (Auto) 68.6 % (50.0-75.0) 04/09/18 06:25 Lymph % (Auto) 12.6 % (20.0-40.0) L 04/09/18 06:25 [place] % (Auto) 10.5 % (0.0-10.0) H 04/09/18 06:25 Eos % (Auto) 7.7 % (0.0-4.0) H 04/09/18 06:25 Baso % (Auto) 0.6 % (0.0-2.0) 04/09/18 06:25 Neut # (Auto) 4.2 K/uL (1.8-7.0) 04/09/18 06:25 Lymph # (Auto) 0.8 K/uL (1.0-4.3) L 04/09/18 06:25 [place] # (Auto) 0.6 K/uL (0.0-0.8) 04/09/18 06:25 Eos # (Auto) 0.5 K/uL (0.0-0.7) 04/09/18 06:25 Baso # (Auto) 0.0 K/uL (0.0-0.2) 04/09/18 06:25 Neutrophils % (Manual) 88 % (50-75) H 04/08/18 06:44 Band Neutrophils % 2 % (0-2) 04/06/18 11:00 Lymphocytes % (Manual) 5 % (20-40) L 04/08/18 06:44 Reactive Lymphs % 1 % (0-0) H 04/06/18 11:00 Monocytes % (Manual) 5 % (0-10) 04/08/18 06:44 Eosinophils % (Manual) 2 % (0-4) 04/08/18 06:44 Platelet Estimate Normal (NORMAL) 04/08/18 06:44 RBC Morphology Normal 04/08/18 06:44 PT 13.3 SECONDS (9.7-12.2) H 04/07/18 06:27 INR 1.2 04/07/18 06:27 APTT 32 SECONDS (21-34) 04/07/18 06:27 Sodium 134 mmol/L (132-148) 04/09/18 06:25 Potassium 4.2 mmol/L (3.6-5.2) 04/09/18 06:25 Chloride 99 mmol/L (98-107) 04/09/18 06:25 Carbon Dioxide 24 mmol/L (22-30) 04/09/18 06:25 Anion Gap 15 (10-20) 04/09/18 06:25 BUN 16 mg/dL (9-20) 04/09/18 06:25 Creatinine 0.8 mg/dL (0.8-1.5) 04/09/18 06:25 Est GFR ( Amer) > 60 04/09/18 06:25 Est GFR (Non-Af Amer) > 60 04/09/18 06:25 Random Glucose 107 mg/dL (75-110) 04/09/18 06:25 Calcium 7.8 mg/dl (8.6-10.4) L 04/09/18 06:25 Total Bilirubin 0.4 mg/dL (0.2-1.3) 04/09/18 06:25 AST 17 U/L (17-59) 04/09/18 06:25 ALT 20 U/L (21-72) L 04/09/18 06:25 Alkaline Phosphatase 64 U/L (38-126) 04/09/18 06:25 Total Protein 6.5 g/dL (6.3-8.3) 04/09/18 06:25 Albumin 3.1 g/dL (3.5-5.0) L 04/09/18 06:25 Globulin 3.3 gm/dL (2.2-3.9) 04/09/18 06:25 Albumin/Globulin Ratio 0.9 (1.0-2.1) L 04/09/18 06:25 Urine Color Uzma (YELLOW) 04/06/18 11:00 Urine Clarity Hazy (Clear) 04/06/18 11:00 Urine pH 7.0 (5.0-8.0) 04/06/18 11:00 Ur Specific [place] 1.020 (1.003-1.030) 04/06/18 11:00 Urine Protein 3+ mg/dL (NEGATIVE) H 04/06/18 11:00 Urine Glucose (UA) Normal mg/dL (Normal) 04/06/18 11:00 Urine Ketones Trace mg/dL (NEGATIVE) 04/06/18 11:00 Urine Blood 3+ (NEGATIVE) H 04/06/18 11:00 Urine Nitrate Negative (NEGATIVE) 04/06/18 11:00 Urine Bilirubin Negative (NEGATIVE) 04/06/18 11:00 Urine Urobilinogen Normal mg/dL (0.2-1.0) 04/06/18 11:00 Ur Leukocyte Esterase 3+ Kvng/uL (Negative) H 04/06/18 11:00 Urine WBC (Auto) 494 /hpf (0-5) H 04/06/18 11:00 Urine RBC (Auto) 526 /hpf (0-3) H 04/06/18 11:00 Ur Squamous Epith Cells 1 /hpf (0-5) 04/06/18 11:00 Urine Bacteria Rare (<OCC) 04/06/18 11:00 - Hospital Course Hospital Course: Upon Admission Mr. Pagan is a 82 year old male with past medical history of severe BPH presents to the ER for dysuria and hematuria. Patient states he has been having dysuria since Saturday. At that time he was seen by his urologist Dr. Avila in the office and patient states his watson was changed and he was told to start a medication but he did not get a chance to fill the prescription. Patient states the pain became unbearable overnight and he was not able to sleep. The pain is what prompted him to come to the ER. Patient denies chest pain, shortness of breath, palpitations, nausea, vomiting, fever, chills, diarrhea, constipation, increase or decrease in weight. Hospital Course Patient is a 82 yo male PMH of BPH is admitted for dysuria and hematuria s/p greenlight laser of prostate on 02/03/18 Dr. Avila. Patient's watson was removed on admission in emergency department 2/2 CT findings. Patient found to have UTI on urinalysis and started on ceftriaxone. Patient complains of burning urination with hematuria. Hematuria resolved after watson was discontinued. Urine culture was positive for Proteus/Enterococcus. Both species were sensitive to Cipro. After speaking with Dr. Aivla, patient is clear for discharge per Dr. Gonzalez with Flomax, Finasteride, and oral Cipro. Patient will follow up with Dr. Avila, urologist, outpatient for further evaluation. Discharge Plan 1. Patient is stable for discharge to home as per Dr. Gonzalez. 2. Patient will need to followup with urologist, Dr. Avila, within 7 days of discharge from hospital. Patient's grandson, Sarthak, was spoken to about further management of patient's care. 3. Patient will resume all home medications the following medications at home: Finasteride 5mg once by mouth daily Tamsulosin 0.4mg twice by mouth daily Ciprofloxacin 500mg once by mouth daily Pyridium as needed upto three times a day for burning urinary pain 4. Patient is educated to use urinal and pull up diapers until he sees his urologist for his incontinence in the meantime as patient is adamant about not having Watson Catheter placed. 5. Patient should return to hospital if symptoms worsen or recur. 6. Patient understands the plan as above and agrees. 1. El paciente se encuentra estable para el [facility] segn el Dr. Gonzalez. 2. El paciente deber realizar un seguimiento con el urlogo, el Dr. Avila, dentro de los 7 freeman posteriores al [facility] hospital[facility]. Se habl con el amato del paciente, Sarthak, sobre el manejo adicional de la atencin del paciente. 3. El paciente reanudar todos los medicamentos en el hogar los siguientes medicamentos en el hogar: Finasteride 5 mg emre vez por la boca diariamente Tamsulosina 0.4 mg dos veces por va oral al da. Ciprofloxacina 500 mg emre vez por boca al da. Pyridium, segn sea necesario, hasta judah veces al da para quemar el dolor urinario 4. Se instruye al paciente para que use el urinario y levante los paales hasta que leigh a torres urlogo por torres incontinencia mientras tanto, mientras el paciente se muestra inflexible en cuanto a la colocacin del catter de Watson. 5. El paciente debe regresar al hospital si los sntomas empeoran o reaparecen. 6. El paciente entiende el plan mariella est arriba y est de acuerdo. Disclaimer: Written above is a synopsis of patient's current hospital admission. Please refer to EMR for full report. Discharge Exam - Head Exam Head Exam: NORMAL INSPECTION, NORMOCEPHALIC - Eye Exam Eye Exam: EOMI, Normal appearance. absent: Nystagmus, Scleral icterus - Respiratory Exam Respiratory Exam: NORMAL BREATHING PATTERN. absent: Chest Wall Tenderness, Decreased Breath Sounds, Rales, Rhonchi, Wheezes, Respiratory Distress - Cardiovascular Exam Cardiovascular Exam: REGULAR RHYTHM, +S1, +S2. absent: Tachycardia, Systolic Murmur - GI/Abdominal Exam GI & Abdominal Exam: Normal Bowel Sounds, Soft. absent: Diminished Bowel Sounds, Distended, Firm, Guarding, Tenderness - Extremities Exam Extremities exam: normal inspection - Neurological Exam Neurological exam: Alert, Oriented x3 - Psychiatric Exam Psychiatric exam: Normal Affect, Normal Mood - Skin Skin Exam: Intact, Normal Color Discharge Plan - Discharge Medications Prescriptions: Ciprofloxacin [Cipro] 500 mg PO BID #20 tab Finasteride [Proscar] 5 mg PO DAILY #15 tab Phenazopyridine [Pyridium] 200 mg PO TIDPC PRN #30 tab PRN Reason: Burning with urination Tamsulosin [Flomax] 0.4 mg PO BID #30 cap - Follow Up Plan Condition: STABLE Disposition: HOME/ ROUTINE Instructions: Ciprofloxacin (Systemic), Acute Abdomen (Belly Pain), Adult (DC), Benign Prostatic Hyperplasia (Enlarged Prostate) (DC), Finasteride, Phenazopyridine, Tamsulosin, Epididymitis (DC) Additional Instructions: 1. Patient is stable for discharge to home as per Dr. Gonzalez. 2. Patient will need to followup with urologist, Dr. Avila, within 7 days of discharge from hospital. Patient's grandson, Sarthak, was spoken to about further management of patient's care. 3. Patient will resume all home medications the following medications at home: Finasteride 5mg once by mouth daily Tamsulosin 0.4mg twice by mouth daily Ciprofloxacin 500mg once by mouth daily Pyridium as needed upto three times a day for burning urinary pain 4. Patient is educated to use urinal and pull up diapers until he sees his urologist for his incontinence in the meantime as patient is adamant about not having Watson Catheter placed. 5. Patient should return to hospital if symptoms worsen or recur. 6. Patient understands the plan as above and agrees. 1. El paciente se encuentra estable para el [facility] hospital[facility] segn el Dr. Gonzalez. 2. El paciente deber realizar un seguimiento con el urlogo, el Dr. Avila, dentro de los 7 freeman posteriores al [facility]. Se habl con el amato del paciente, Sarthak, sobre el manejo adicional de la atencin del paciente. 3. El paciente reanudar todos los medicamentos en el hogar los siguientes medicamentos en el hogar: Finasteride 5 mg emre vez por la boca diariamente Tamsulosina 0.4 mg dos veces por va oral al da. Ciprofloxacina 500 mg emre vez por boca al da. Pyridium, segn sea necesario, hasta judah veces al da para quemar el dolor urinario 4. Se instruye al paciente para que use el urinario y levante los paales hasta que leigh a torres urlogo por torres incontinencia mientras tanto, mientras el paciente se muestra inflexible en cuanto a la colocacin del catter de Watson. 5. El paciente debe regresar al hospital si los sntomas empeoran o reaparecen. 6. El paciente entiende el plan mariella est arriba y est de acuerdo. Referrals: Davonte Avila MD [Medical Doctor] -
[2018-04-09 16:28] VITALS: BP 108/69; PULSE 71; O2SAT 96
== END 2018-04-09 17:21 | disposition home or self-care (01) | DRG 690 ==
LOC: C.ER 10:02 → C.9E 14:17 → C.6T 15:47
PROVIDERS: ADMIT Internal Medicine; ATTEND Internal Medicine
DX: N39.0 Urinary tract infection, site not specified (principal); N40.0 Benign prostatic hyperplasia without lower urinary tract symptoms; R31.9 Hematuria, unspecified; N50.3 Cyst of epididymis; N43.3 Hydrocele, unspecified; B96.4 Proteus (mirabilis) (morganii) as the cause of diseases classified elsewhere; B95.2 Enterococcus as the cause of diseases classified elsewhere; Z87.891 Personal history of nicotine dependence